=== PATIENT | female | born 1965 | race Caucasian/White ===

== ENCOUNTER 2020-09-14 10:47 | Day surgery (SDC) | payer OTHER, SELFPAY ==
--- NOTE | 2020-09-06 12:11 | EKG12_ITS ---
Test Reason : PRE OP Blood Pressure : / mmHG Vent. Rate : 068 BPM Atrial Rate : 068 BPM P-R Int : 126 ms QRS Dur : 070 ms QT Int : 404 ms P-R-T Axes : 047 056 025 degrees QTc Int : 429 ms Normal sinus rhythm Septal infarct , age undetermined , cannot be excluded Abnormal ECG Confirmed by SHINE BROWN, RAEANN ([id number]), material expeditor TRINI CARD ([id number]) on 09/07/2020 9:30:16 AM Referred By: Mike Sutton Confirmed By:RAEANN RIOJAS MD
[2020-09-06 13:20] LABS: Hematocrit 42.1 % (37-47); Hemoglobin 13.6 g/dL (12.0-15.0); Mean Corp Hgb Conc 32.3 g/dL (32-36); Mean Corpuscular Hgb 29.6 pg (27.0-32.0); Mean Corpuscular Volume 91.5 fL (81-99); Mean Platelet Vol. 10.4 fl (6.2-12.0); Platelet Count 286 K/mm3 (150-450); RBC Distribution Width CV 12.7 % (11.6-14.6); RBC Distribution Width SD 42.6 fl (35.1-43.9); White Blood Count 8.2 K/mm3 (4.4-11.0)
[2020-09-06 13:45] LABS: Anion Gap 3 (5-15); BUN 23 mg/dL (7-18); BUN/Creat Ratio 27.3 RATIO (10-20); Calcium,Total 10.1 mg/dL (8.5-10.1); Chloride 103 mmol/L (98-107); Creatinine, Serum 0.84 mg/dL (0.55-1.02); EST Glomerular Filtration Rate 74 mL/min (>60); Est Glom Filt Rate - Afr Amer 89 mL/min (>60); Glucose 79 mg/dL (74-106); Sodium Level 135 mmol/L (136-145)
[2020-09-14 11:40] VITALS: BP 117/66; PULSE 72; RESP 14; TEMP 36.4; O2SAT 100; BMI 28.1
[2020-09-14] MEDS: Lactated Ringers 1,000 ML 100 ML IV ×2 (11:49→13:42)
[2020-09-14] MEDS: Cefazolin 2 GM in 0.9% Normal Saline 100 ML IV (12:36)
--- NOTE | 2020-09-14 12:39 | PCM.OPRPT ---
Report of Operation Date of Procedure: 09/14/20 Pre-Operative Diagnosis: Internal derangement right knee Post-Operative Diagnosis: MMT, LMT, Grade 3 OA triconpatmental, chronic partial tear ACL Surgery/Procedure Performed:: D & O arthroscopy right knee rough rice grader: None Type of Anesthesia: General Admit VTE Documentation VTE Present on Admission: No VTE Mechan Device Prophylaxis: SCD's VTE Pharm Prophylaxis ordered?: No Reason prophylaxis not ordered:: Treatment Not Indicated
[2020-09-14] MEDS: Epinephrine (1 mg/ml) 1 MG/ML VIAL (12:55)
[2020-09-14] MEDS: Bupiv/Epi 0.25% 30 ML Vial (13:16)
[2020-09-14 13:35] VITALS: BP 117/66; BP 124/86; PULSE 78; PULSE 94; RESP 18; TEMP 36.1; O2SAT 100
[2020-09-14 13:45] VITALS: BP 110/76; BP 117/66; PULSE 76; RESP 18; O2SAT 100
[2020-09-14 14:00] VITALS: BP 117/66; BP 122/82; PULSE 86; RESP 18; TEMP 35.9; O2SAT 100
[2020-09-14 14:49] VITALS: BP 117/66; BP 138/69; PULSE 57; RESP 18; TEMP 36.2; O2SAT 100
== END 2020-09-14 14:55 ==
LOC: SDC 10:49 → AC 10:50
PROVIDERS: PCP Internal Medicine; Referring Provider Orthopaedic Surgery; Visit Provider Orthopaedic Surgery
PROC: (CPT 29870; principal; 2020-09-14 12:10)
DX: S83.511A Sprain of anterior cruciate ligament of right knee, initial encounter (principal); S83.241A Other tear of medial meniscus, current injury, right knee, initial encounter; S83.281A Other tear of lateral meniscus, current injury, right knee, initial encounter; M23.91 Unspecified internal derangement of right knee; M71.21 Synovial cyst of popliteal space [Baker], right knee; M17.11 Unilateral primary osteoarthritis, right knee; X58.XXXA Exposure to other specified factors, initial encounter; Y93.9 Activity, unspecified; Y92.9 Unspecified place or not applicable; Y99.9 Unspecified external cause status; E66.3 Overweight; Z68.28 Body mass index [BMI] 28.0-28.9, adult; Z78.0 Asymptomatic menopausal state; Z79.899 Other long term (current) drug therapy
CPT/HCPCS: 01400; 29880; 36415; 80048; 85027; 93005; J7120; J2405